=== PATIENT | male | born 1995 | race Caucasian/White ===

== ENCOUNTER → 2021-02-28 10:01 | Outpatient (CLI) | payer OTHER, SELFPAY ==
--- NOTE | 2021-02-28 11:00 | RAD_ITS ---
EXAM DESCRIPTION: PA and lateral CHEST CLINICAL HISTORY: 26 years Male, SOB SOB COMPARISON: None FINDINGS: The thorax is intact. The heart and mediastinum appear to be within normal limits. The lungs appear to be well areated without evidence of pneumonic consolidation or pleural effusion. RAD/Chest PA and Lateral IMPRESSION: Normal chest. Electronically Signed: Gildardo Alas DO at 12:38 EDT Tel , Service support ,
--- NOTE | 2021-02-28 14:46 | PFTCOMP_ITS ---
COMPLETE PULMONARY FUNCTION TEST INTERPRETATION Brief HPI: Patient is a 26 year old male, currently under the care of Dr. Young, who presents to [facility] for complete pulmonary function tests secondary to diagnosis of dyspnea. Respiratory therapist reports good effort and reproducible results. Interpretation: Forced expiration spirometry shows no large airways obstructive ventilatory defect with an FEV1 of 88% predicted. There is no significant bronchodilator response by strict ATS criteria. Spirograms are of good quality and plateau normally. The respiratory flow volume loop shows a normal pattern. Lung volumes by body plethysmography show a slightly decreased total lung capacity at 6.58 L, 86% predicted. All other lung volumes are reduced symmetrically. Diffusion capacity by carbon monoxide is normal at 92% predicted. The airway resistance is normal. No previous pulmonary function tests were available for review. Impression: Mild restrictive ventilatory defect with preserved diffusion capacity consistent with musculoskeletal limitation.
== END ==
DX: R06.02 Shortness of breath (principal)
CPT/HCPCS: 71046; 94060; 94726; 94729